=== PATIENT | female | born 1995 | race Caucasian/White ===

== ENCOUNTER 2021-06-20 13:40 | Inpatient (IN) | payer OTHER, SELFPAY ==
[2021-06-20] VITALS (32 sets, daily range): BP systolic 115–143; BP diastolic 61–90; PULSE 66–109; TEMP 36.7–37; O2SAT 80–100; BMI 26.1
[2021-06-20 13:38] LABS: ROM Internal Control Test YES-OK TO RESULT pt. (Internal QC)
[2021-06-20 13:39] LABS: ROM Patient Test POSITIVE (Negative)
[2021-06-20] MEDS: Lactated Ringers 1,000 ML 50 ML IV (13:54)
[2021-06-20 14:12] LABS: Absolute Lymphocyte Count 1.24 X10^3/uL (0.83-4.51); Absolute Neutrophil Count 7.5 X10^3/uL (2.0-7.7); Basophil# 0.06 X10^3/uL; Basophil% 0.6 % (0-1); Eosinophil# 0.13 X10^3/uL; Eosinophils% 1.4 % (0-5); Hematocrit 35.8 % (37-47); Hemoglobin 12.4 g/dL (12.0-15.0); Lymphocyte # 1.24 X10^3/ul (0.83-4.51); Lymphocyte % 13.1 % (19-41); Mean Corp Hgb Conc 34.6 g/dL (32-36); Mean Corpuscular Hgb 29.9 pg (27.0-32.0); Mean Corpuscular Volume 86.3 fL (81-99); Mean Platelet Vol. 10.9 fl (6.2-12.0); Monocyte# 0.53 X10^3/uL; Monocyte% 5.6 % (0-10); NRBC Flagged by Analyzer 0 % (0-5); Neutrophil # 7.46 X10^3/uL (2.7-7.7); Neutrophil % 78.7 % (47-70); Platelet Count 183 K/mm3 (150-450); RBC Distribution Width CV 13.8 % (11.6-14.6); RBC Distribution Width SD 42.9 fl (35.1-43.9); Red Blood Count 4.15 M/mm3 (4.2-5.4); White Blood Count 9.5 K/mm3 (4.4-11.0)
[2021-06-20 14:30] LABS: Bedside Glucose 70 mg/dL (74-106)
[2021-06-20 15:41] LABS: Bedside Glucose 82 mg/dL (74-106)
[2021-06-20] MEDS: Ondansetron 4 MG/2 ML Vial IV (16:14)
[2021-06-20] MEDS: Lactated Ringers 500 ML 999 ML IV (16:48)
--- NOTE | 2021-06-20 16:57 | PCM.HP.OB ---
HPI - General General Date of Admission: 06/20/21 HPI Narrative SHELLEY FITZPATRICK, is a 26 F at 38.4 weeks gestation who presents to triage with leaking of fluid. Reports water breaking around 1210 for large amount of clear fluid. Positive movement. Patient feeling contractions every couple of minutes. complicated by GDM A1, Anemia, and RH negative status. Maternal Data Information ROSEY Calculator Estimated Delivery Date Method Current WG Current Estimate 06/30/21 Manual 38w 4d PFSH PFSH Medical History Anxiety Depression Gestational diabetes Headache Meniscal injury Home Medications ferrous sulfate [iron] 325 mg PO DAILY 06/20/21 [History Last Taken Unknown] vit-iron fum-folic ac [ Fa] 1 tab PO DAILY 06/20/21 [History Last Taken Unknown] Allergy/AdvReac Type Severity Reaction Status Date / Time No Known Allergies Allergy Unverified 06/20/21 13:24 Social History Smoking Status: Never smoker alcohol intake: current alcohol intake frequency: holidays/special occasions only History Elective abortions Hx Para 0 Spontaneous abortions Hx # Term Pregnancies Ectopic pregnancies Hx # Pregnancies Multiple births # of living children NST FHR Rate Baby A Baseline: 135 Variability:: Moderate Accelerations:: 15 x 15 Decelerations:: None NST Reactive:: Yes FHR Category:: Category I Uterine Activity:: 2-4 minutes ROS Eyes Eyes: Denies blurry vision, change in vision or spots in vision ENT HEENT: Denies dizziness or headache(s) Cardiovascular Cardiovascular: Denies abdominal pain, chest pain or dyspnea Respiratory/Chest Respiratory/Chest: Denies cough, dyspnea, shortness of breath at rest or shortness of breath with exertion Gastrointestinal Gastrointestinal: Denies abdominal pain, diarrhea or vomiting Genitourinary Genitourinary: Denies change in urinary stream, difficulty urinating or dysuria Musculoskeletal Musculoskeletal: Reports none Integumentary Integumentary: Denies rash Neurologic Neurologic: Denies dizziness, headache(s), memory loss or weakness Psychiatric Psychiatric: Reports none Vital Signs Vital Signs Vital Signs: 06/20/21 13:41 06/20/21 14:01 06/20/21 14:02 Temperature 98.6 F Temperature Source Temporal Pulse Rate 86 86 90 Blood Pressure 130/90 H 134/86 H BP Systolic 130 134 BP Diastolic 90 86 Pulse Ox 98 06/20/21 14:03 06/20/21 15:31 06/20/21 16:34 Temperature 98.5 F 98.3 F Temperature Source Temporal Temporal Pulse Rate 75 73 Blood Pressure 130/88 H 130/84 H BP Systolic 130 130 BP Diastolic 88 84 Pulse Ox 80 Weight Weight: 156 lb 15.506 oz Body Mass Index (BMI) 26.1 Physical Exam Const alert, oriented x3 and no apparent distress General Appearance: cooperative Orientation / Consciousness: awake Exam Limitations: no limitations HEENT normocephalic Head and Scalp: normal to inspection Eyes General Eye: normal appearance of both eyes Neck full ROM and no lymphadenopathy Lymph Lymphatic: no lymphadenopathy noted Chest inspection of chest normal Resp normal respiratory effort, normal air movement and clear to auscultation bilaterally Effort and Inspection: able to speak in complete sentences and symmetric chest movement Cardio regular rate and regular rhythm GI normal to inspection, nondistended, normoactive bowel sounds Narrative: 80 Manual OB Exam: presentation cephalic, dilated 4.5, effaced and station -2 Amniotic Fluid: clear amniotic fluid Back/Spine normal ROM Extremity full ROM and no calf tenderness Skin no rashes or lesions noted General Skin Exam: no breakdown Neuro oriented x3 and CN's II-XII intact bilaterally Psych mental status grossly normal and thought process normal Labs Labs Labs: Blood Type O NEGATIVE Antibody Screen NEGATIVE Hct 35.8 % (37-47) L Hgb 12.4 g/dL (12.0-15.0) Rubella- immune HB- neg HC- neg RPR- NR HIV- NR GBS- negative Assessment & Plan (1) Spontaneous rupture of membranes: (2) Spontaneous onset of labor: (3) 38 weeks gestation of : (4) GDM (gestational diabetes mellitus), class A1: (5) Rh negative status during : QUALIFIERS: Trimester: unspecified trimester Qualified Code(s): O26.899 - Other specified related conditions, unspecified trimester; Z67.91 - Unspecified blood type, Rh negative (6) Anemia affecting : QUALIFIERS: Trimester: third trimester Qualified Code(s): O99.013 - Anemia complicating , third trimester PLAN: ROM plus- Positive CE 4.5/80/-2 Admit to labor and delivery Routine labs Start IV and run fluids per orders GDM protocol initiated Epidural when indicated Dr. Esqueda notified of induction and is collaborating physician
[2021-06-20] MEDS: fentaNYL-bupivacaine (epidural) 100 ML BAG EPIDURAL (17:45)
[2021-06-20 18:46] LABS: Bedside Glucose 87 mg/dL (74-106)
[2021-06-20 18:46] LABS: Bedside Glucose 68 mg/dL (74-106)
[2021-06-20 18:46] LABS: Bedside Glucose 106 mg/dL (74-106)
[2021-06-20] MEDS: Oxytocin 30 units/NS 500 ml 30 UNITS/500 ML IV.SOLN 167 UNITS IV (19:10)
--- NOTE | 2021-06-20 19:20 | EX.PCM.OBRPT ---
Assessment & Plan (1) Two vessel umbilical cord: (2) Rh negative status during : QUALIFIERS: Trimester: unspecified trimester Qualified Code(s): O26.899 - Other specified related conditions, unspecified trimester; Z67.91 - Unspecified blood type, Rh negative (3) GDM (gestational diabetes mellitus), class A1: (4) (spontaneous vaginal delivery): Maternal Data Information ROSEY Calculator Estimated Delivery Date Method Current WG Current Estimate 06/30/21 Manual 38w 4d Vaginal Delivery Maternal Presentation Maternal Presentation: Spontaneous Rupture of Membranes Maternal Presentation: at 38.4 weeks gestation that presented with spontaneous onset of labor with SROM for clear fluid. No augmentation needed. Operative Information Date of Procedure: 06/20/21 Pre-Operative Diagnosis: Term gestation, spontaneous rupture of membranes, spontaneous onset of labor Post-Operative Diagnosis: Same Surgery / Procedure Performed: Spontaneous Vaginal Delivery Type of Anesthesia: Epidural Estimated Blood Loss: 200 Time of Delivery: 19:06 Findings Description of Procedure: Provided bedside support to patient while pushing. With minimal maternal effort, head delivered followed by anterior shoulder and remainder of . CAN x 1 loose and delivered through. Vigorous male placed on maternal abdomen and attended to by nursing staff. Pitocin IV started for active management of the third stage of labor. 2 vessel cord clamped and cut by FOB after delay. Cord blood collected and sent to lab. placed immediately skin to skin with patient. Placenta delivered spontaneously and intact. After inspection it was noted that vagina and perineum intact. Vaginal sweep completed by me. Hemostasis obtained. EBL 200 cc. Fundus firm and 1 below U. Small vaginal cyst present that was previously seen in office. Will be removed at PP office visit. Patient and bonding well at this time. APGARS 9/10. Dr. Esqueda notified of delivery. Presentation: Vertex Time of Membrane Rupture: 1210 Amniotic Fluid Description: Clear Placental Delivery Description: Spontaneous Placenta Disposition: [facility] Cord Vessel Description: 2 Vessels Cord Entanglement: Around neck x 1, loose Nuchal Cord Compression: Without compression Infant A Gender: Male (1 minute): 9 (5 minute): 10 Delayed Cord Clamping: Yes Post Vaginal Delivery Medications Given After Delivery: IV Pitocin Episiotomy Description: None Laceration: None Complication Complications: None
[2021-06-20 20:10] LABS: Bedside Glucose 108 mg/dL (74-106)
[2021-06-21 00:47] VITALS: BP 115/80; PULSE 73; RESP 18; TEMP 36.8
--- NOTE | 2021-06-21 01:22 | NURSING ---
06/20/21 @ 6941 epidural cath removed. tip intact.
[2021-06-21 03:49] VITALS: BP 116/72; PULSE 73; RESP 16; TEMP 36.5
[2021-06-21 05:26] LABS: Bedside Glucose 68 mg/dL (74-106)
--- NOTE | 2021-06-21 08:24 | PCM.PN.OB ---
Subjective Subjective Doing well per patient and nursing staff. Ambulating and taking PO without difficulty. Voiding and passing flatus. Pain controlled. , services for assistance. Denies headache, visual changes, chest pain, shortness of breath, leg pain or increased bleeding. Lochia normal. Objective Data Objective Data Vital Signs: Vital Signs Temp Pulse Resp BP Pulse Ox 97.7 F L 73 16 116/72 98 06/21/21 03:49 06/21/21 03:49 06/21/21 03:49 06/21/21 03:49 06/20/21 18:42 Oxygen Delivery Method Room Air Weight: 156 lb 15.506 oz Body Mass Index (BMI) 26.1 Intake & Output: Intake and Output for Last 24 Hours 06/19/21 06/20/21 06/21/21 23:59 23:59 23:59 Intake Total 7.5 / 1916.5 Output Total 1200 / 1200 Balance 7.5 / 1916.5 -1200 / -1200 Lab / Micro Data Result Diagrams: 06/20/21 13:55 Labs: Laboratory Results - last 24 hr 06/20/21 13:25: Vag Amniotic Fld Detect POSITIVE H 06/20/21 13:55: WBC 9.5, RBC 4.15 L, Hgb 12.4, Hct 35.8 L, MCV 86.3, MCH 29.9, MCHC 34.6, RDW Std Deviation 42.9, RDW Coeff of Saloni 13.8, Plt Count 183, MPV 10.9, Immature Gran % (Auto) 0.600, Neut % (Auto) 78.7 H, Lymph % (Auto) 13.1 L, [place] % (Auto) 5.6, Eos % (Auto) 1.4, Baso % (Auto) 0.6, Absolute Neuts (auto) 7.5, Absolute Lymphs (auto) 1.24, Nucleated RBC % 0 06/20/21 13:55: Blood Type O NEGATIVE, Antibody Screen Not Reportable 06/20/21 13:55: Antibody Screen NEGATIVE 06/20/21 14:26: POC Glucose 70 L 06/20/21 15:32: POC Glucose 82 06/20/21 16:37: POC Glucose 68 L 06/20/21 17:34: POC Glucose 87 06/20/21 18:35: POC Glucose 106 06/20/21 20:07: POC Glucose 108 H 06/20/21 21:10: Screen NEGATIVE, Baby's Blood Type O POSITIVE, Baby's CORI NEGATIVE 06/21/21 05:16: POC Glucose 68 L Micro: Microbiology 06/20/21 Unknown Nasal Secretion SARS-CoV-2 Antigen (Rapid) - Final ROS Constitutional Constitutional: Reports systems reviewed and no addt'l complaints, except as documented; Denies headache(s) Eyes Eyes: Denies acute decrease in peripheral vision, blurry vision or change in vision ENT HEENT: Reports systems reviewed and no addt'l complaints, except as documented Cardiovascular Cardiovascular: Denies chest pain or dizziness Respiratory/Chest Respiratory/Chest: Denies cough, dyspnea, dyspnea on exertion, shortness of breath at rest or shortness of breath with exertion Gastrointestinal Gastrointestinal: Denies abdominal pain, diarrhea, nausea or vomiting Genitourinary Genitourinary: Denies abdominal discomfort Musculoskeletal Musculoskeletal: Denies limited range of motion Integumentary Integumentary: Reports systems reviewed and no addt'l complaints, except as documented Neurologic Neurologic: Reports systems reviewed and no addt'l complaints, except as documented Psychiatric Psychiatric: Reports systems reviewed and no addt'l complaints, except as documented Endocrine Endocrinology: Reports systems reviewed and no addt'l complaints, except as documented Hematologic/Lymphatic Hematologic/Lymphatic: Reports systems reviewed and no addt'l complaints, except as documented Allergic/Immunologic Allergic/Immunologic: Reports systems reviewed and no addt'l complaints, except as documented Physical Exam Const alert and oriented x3 General Appearance: cooperative Orientation / Consciousness: awake, oriented to person, oriented to place and oriented to time Exam Limitations: no limitations HEENT normocephalic Head and Scalp: normal to inspection, normocephalic and atraumatic Face and Sinus: normal facial exam Eyes General Eye: normal appearance of both eyes Neck full ROM Chest Chest: symmetrical chest wall rise Resp normal respiratory effort and normal air movement Auscultation: clear to auscultation bilaterally Cardio regular rate, regular rhythm, S1 normal heart sound, S2 normal heart sound, no murmurs, no rub, no gallops and no clicks GI normal to inspection, nondistended, normoactive bowel sounds and non-tender appearance of the vagina normal Bladder / Kidney Exam: no CVA tenderness Back/Spine normal ROM Extremity normal to inspection and full ROM Skin no rashes or lesions noted Neuro oriented x3, CN's II-XII intact bilaterally and moves all extremities Sensorium / Orientation: awake, alert and oriented to person Motor Exam: clonus absent Deep Tendon Reflexes: Rt Patellar (L4): 2+ and Lt Patellar (L4): 2+ Assessment & Plan (1) (spontaneous vaginal delivery): (2) GDM (gestational diabetes mellitus), class A1: PLAN: 1) Routine PP care 2) Vitals stable 3) Pain controlled 4) PPD#1, planning D/C tomorrow
[2021-06-21 10:00] VITALS: BP 122/82; PULSE 63; RESP 16; TEMP 36.3
[2021-06-21] MEDS: Acetaminophen 500 MG Tablet 1000 MG PO ×2 (10:55→19:42)
[2021-06-21] MEDS: Prenatal Vits Tablet 1 TABLET PO (10:56)
[2021-06-21] MEDS: Ferrous Sulfate 325 MG Tablet PO (10:56)
[2021-06-21 15:18] VITALS: BP 124/86; PULSE 78; RESP 16; TEMP 36.6; O2SAT 96
[2021-06-21 18:24] VITALS: BP 102/68; PULSE 69; RESP 16; TEMP 36.6
[2021-06-21 21:00] VITALS: BP 108/75; PULSE 68; RESP 16; TEMP 36.3; O2SAT 97
[2021-06-22 00:59] VITALS: BP 109/77; PULSE 73; RESP 16; TEMP 36.3; O2SAT 97
[2021-06-22] MEDS: Acetaminophen 500 MG Tablet 1000 MG PO ×2 (06:19→12:22)
[2021-06-22 10:40] VITALS: BP 125/87; PULSE 71; RESP 16; TEMP 36.6
--- NOTE | 2021-06-22 10:55 | PN.OBGYN_ITS ---
Subjective Subjective Doing well per patient and nursing staff. Ambulating and taking PO without difficulty. Voiding and passing flatus. Pain controlled. and pumping,baby in special care nursery for blood sugars. Denies headache, visual changes, chest pain, shortness of breath, leg pain or increased bleeding. Lochia normal. Objective Data Objective Data Vital Signs: Vital Signs Temp Pulse Resp BP Pulse Ox 97.9 F 71 16 125/87 H 97 06/22/21 10:40 06/22/21 10:40 06/22/21 10:40 06/22/21 10:40 06/22/21 00:59 Oxygen Delivery Method Room Air Weight: 156 lb 15.506 oz Body Mass Index (BMI) 26.1 Intake & Output: Intake and Output for Last 24 Hours 06/20/21 06/21/21 06/22/21 23:59 23:59 23:59 Intake Total 7.5 / 1916.5 Output Total 1200 / 1200 Balance 7.5 / 7.5 -1200 / -1200 Lab / Micro Data Result Diagrams: 06/20/21 13:55 Micro: Microbiology 06/20/21 Unknown Nasal Secretion SARS-CoV-2 Antigen (Rapid) - Final ROS Constitutional Constitutional: Reports systems reviewed and no addt'l complaints, except as documented; Denies headache(s) Eyes Eyes: Denies acute decrease in peripheral vision, blurry vision or change in vision ENT HEENT: Reports systems reviewed and no addt'l complaints, except as documented Cardiovascular Cardiovascular: Denies chest pain or dizziness Respiratory/Chest Respiratory/Chest: Denies cough, dyspnea, dyspnea on exertion, shortness of breath at rest or shortness of breath with exertion Gastrointestinal Gastrointestinal: Denies abdominal pain, diarrhea, nausea or vomiting Genitourinary Genitourinary: Denies abdominal discomfort Musculoskeletal Musculoskeletal: Denies limited range of motion Integumentary Integumentary: Reports systems reviewed and no addt'l complaints, except as documented Neurologic Neurologic: Reports systems reviewed and no addt'l complaints, except as documented Psychiatric Psychiatric: Reports systems reviewed and no addt'l complaints, except as documented Endocrine Endocrinology: Reports systems reviewed and no addt'l complaints, except as docu mented Hematologic/Lymphatic Hematologic/Lymphatic: Reports systems reviewed and no addt'l complaints, except as documented Allergic/Immunologic Allergic/Immunologic: Reports systems reviewed and no addt'l complaints, except as documented Physical Exam Const alert and oriented x3 General Appearance: cooperative Orientation / Consciousness: awake, oriented to person, oriented to place and oriented to time Exam Limitations: no limitations HEENT normocephalic Head and Scalp: normal to inspection, normocephalic and atraumatic Face and Sinus: normal facial exam Eyes General Eye: normal appearance of both eyes Neck full ROM Chest Chest: symmetrical chest wall rise Resp normal respiratory effort and normal air movement Auscultation: clear to auscultation bilaterally Cardio regular rate, regular rhythm, S1 normal heart sound, S2 normal heart sound, no murmurs, no rub, no gallops and no clicks GI normal to inspection, nondistended, normoactive bowel sounds and non-tender appearance of the vagina normal Bladder / Kidney Exam: no CVA tenderness Back/Spine normal ROM Extremity normal to inspection and full ROM Skin no rashes or lesions noted Neuro oriented x3, CN's II-XII intact bilaterally and moves all extremities Sensorium / Orientation: awake, alert and oriented to person Motor Exam: clonus absent Deep Tendon Reflexes: Rt Patellar (L4): 2+ and Lt Patellar (L4): 2+ Assessment & Plan (1) (spontaneous vaginal delivery): PLAN: 1) Routine PP care 2) Pain management, declines medication 3) Hgb stable, asymptomatic 4) Discharge to hotel status 5) Follow up in 2 weeks and 6 weeks PP
[2021-06-22] MEDS: Ferrous Sulfate 325 MG Tablet PO (10:56)
--- NOTE | 2021-06-22 10:58 | PCM.DC.SUM ---
Providers Date of Admission: 06/20/21 Primary Care Physician: Dr. Tia Lennon MD Reason For Visit: LABOR AND DELIVERY/VAGINAL DELIVERY Diagnosis Discharge Diagnosis (1) (spontaneous vaginal delivery): Status: Acute Code(s): O80 - Encounter for full-term uncomplicated delivery Medications at Discharge Home Medications vit-iron fum-folic ac 1 tab PO DAILY 06/20/21 acetaminophen 1,000 mg PO Q6H PRN PRN #0 tab 06/22/21 naproxen 500 mg PO Q8H PRN PRN #0 tab 06/22/21 Weight / BMI Weight Weight: 156 lb 15.506 oz Body Mass Index (BMI) 26.1 ABG / Lab / Microbiology Data Result Diagrams: 06/20/21 13:55 Microbiology: Microbiology 06/20/21 Unknown Nasal Secretion SARS-CoV-2 Antigen (Rapid) - Final Meaningful Use Info Meaningful Use Diagnoses (Choose all that apply): None applicable Discharge Plan Admission Admit Date/Time: 06/20/21 13:40 Primary Reason for Your Visit: vaginal delivery Attending Provider: Esha Cavanaugh Primary Care Provider: Tia Lennon Instructions Patient Instructions: After a Vaginal , Discharge Orders/Prescriptions Prescriptions: New acetaminophen 500 mg Tablet 1,000 mg PO Q6H PRN PRN (Reason: Pain 1-10 Or Fever) Qty: 0 RF: 0 naproxen 500 mg Tablet 500 mg PO Q8H PRN PRN (Reason: Pain Score 1-3) Qty: 0 RF: 0 Continued vit-iron fum-folic ac 60 mg iron-1 mg Tablet 1 tab PO DAILY RF: 0 Discontinued ferrous sulfate [iron] 325 mg (65 mg iron) Tablet 325 mg PO DAILY RF: 0 Referrals / Follow Up: Esha Cavanaugh CNM [Certified Nurse Scientific Software Developer] - (2 weeks and 6 weeks ) Tia Lennon MD [Primary Care Provider] - Disposition Disposition (needs filled in before D/C Order can be placed): Home, Self Care
[2021-06-22] MEDS: Prenatal Vits Tablet 1 TABLET PO (12:23)
--- NOTE | 2021-06-22 13:10 | CM.ED ---
SW Note SW spoke to patient and she gave verbal consent to speak to her in the presence of the FOB. The nb was in the SCN so SW did not note interaction between nb and pt/fob. However, Sherice RUANO voiced no concerns regarding patient and care of the nb. Mom: Meredith PNC: Chloe Delivered at 38 weeks. Control: Nonhormonal type of control which she plans to speak to her OB about at follow up visit. Baby: Emelia Kim : 06/20/21 Apgars : 9/10 Weight: 7# 13 ounces Scientific Photographer: Jama Breast feeding. Patient reports that breast feeding is going good. This is patient's first child. No other children Housing: Patient, FOB and nb will reside together in rented house. Transportation: Patient reports access to transportation and no transportation issues. Supplies: Patient report she has all the nb supplies including bassinet, crib, carseat, clothes and diapers. Support: Patient said that her support includes her mother and fob. Patient's family is local. Patient said that her friend is a nurse and a support. 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 Employment: Patient is employed at [employer] as a [employer]. She reports that she has celis off so she will return back to work in November. Patient said that her goal is to pass the exam and work at the hospital. Patient said that she enjoys the geriartic population. 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 He plans to take 2 weeks off work. He recently graduated from [employer] with a LABEL DRIER. No other children FOB reports history of depression with anxiety and it is managed effectively with coping skill and no medication. Maternal MH History: Patient reports that she has anxiety and depression and feels that the anxiety makes her more depressed. Patient reports no past medication use. Patient said that she would prefer to go to counseling for coping skills as opposed to medication. Patient said that she has gone to counseling in the past but did not like the therapist. No current therapist. SW discussed that medication can be beneficial and patient verbalized understanding. Patient reports no SI/HI and reports no psych hospitalization. SW talked extensively about Post Depression and symptoms of PPD and advised when to contact her MD. Patient verbalized understanding. SW also educated on the [facility] PHP/IOP program. Mary Carmen was educated on Shaken Baby Syndrome, PPD, Safe Sleeping. Patient reports no alcohol use while but does drink socially when not . Patient denied drug use. Patient denied smoking nicotine. SW provided handout which included phone numbers for support, on line anxiety and depression resources , HMG resources, [facility], 10 facts about depression and anxiety in and post , depression symptom checklist and counseling agencies. No concerns or issues voiced by patient or FOB. Plan: Home at discharge. Patient is currently on hotel status as nb is in [facility]. Essence RUIZ
== END 2021-06-22 14:10 | disposition home or self-care (01) | DRG 807 ==
LOC: WPOUT 13:41 → WP 13:41
PROVIDERS: Admitting Provider Advanced Practice Midwife; PCP Pediatrics; Visit Provider Advanced Practice Midwife
DX: O24.429 Gestational diabetes mellitus in childbirth, unspecified control (principal); Z37.0 Single live birth; D64.9 Anemia, unspecified; Q27.0 Congenital absence and hypoplasia of umbilical artery; O26.893 Other specified pregnancy related conditions, third trimester; O69.2XX0 Labor and delivery complicated by other cord entanglement, with compression, not applicable or unspecified; Z3A.38 38 weeks gestation of pregnancy; Z67.91 Unspecified blood type, Rh negative; O99.013 Anemia complicating pregnancy, third trimester
CPT/HCPCS: 59025; 59050; 82962; 84112; 85025; 85461; 86850; 86900; 86901; 87426; 90384; 99218; J7120; G0378; J2405; J2790

== ENCOUNTER 2021-08-05 21:53 | Emergency (ER) | payer OTHER, SELFPAY ==
[2021-08-05 21:55] VITALS: BP 126/78; PULSE 82; RESP 16; TEMP 36.2; O2SAT 98; BMI 22.1
--- NOTE | 2021-08-05 23:00 | EKG12_ITS ---
Test Reason : CP Blood Pressure : / mmHG Vent. Rate : 083 BPM Atrial Rate : 083 BPM P-R Int : 142 ms QRS Dur : 070 ms QT Int : 392 ms P-R-T Axes : 069 069 028 degrees QTc Int : 460 ms Sinus rhythm with frequent Premature ventricular complexes Otherwise normal ECG Confirmed by ANDRA PRADO, LUIS ([id number]), photo editor QUENTIN LYLE ([id number]) on 08/07/2021 8:48:43 AM Referred By: BB Confirmed By:LUIS SILVERMAN MD
--- NOTE | 2021-08-05 23:01 | ED.VIS.CHEST ---
HPI History of Present Illness Chief Complaint: Chest Pain Informant: patient Onset/Context/Timing Onset: Today (Last 3 to 4 hours) Activity at onset: gradual and onset Timing: Continuous Quality: Positive for Dull Location: Left Parasternal Current Severity: Mild Maximum Severity: Moderate Worsened By: Breathing Relieved By: - (Breathing easier but letting off now for unknown reason) Associated Symptoms: Negative for Nausea, Vomiting, Diaphoresis, Dyspnea, Cough, Fever, Lightheadedness or Palpitations Narrative Narrative: Patient is about 6 weeks after an uncomplicated spontaneous vaginal delivery, her was complicated by gestational diabetes but the delivery and period have been uncomplicated until now. She states this evening she went for a run and she had no problems or dyspnea or chest discomfort, but when she got done with it she started having pleuritic left-sided chest pain and tingling in her left little finger. No history of DVT or PE, no bleeding or clotting disorders in her or the family that they know of, no recent leg pain or swelling, no recent travel out of the area, no surgeries. She did have a partially collapsed lung once that was spontaneous. [facility] Medical History Anxiety Depression Gestational diabetes Headache Meniscal injury Medical History no medical history Home Medications vit with calcium-iron fum-folic acid 60 mg iron-1 mg tablet 1 tab PO DAILY 06/20/21 [History Last Taken Unknown] Allergy/AdvReac Type Severity Reaction Status Date / Time No Known Allergies Allergy Verified 08/05/21 21:55 Social History Smoking Status: Never smoker alcohol intake: current alcohol intake frequency: holidays/special occasions only ROS ROS ED Constitutional Constitutional ED: Denies chills or fever(s) Eyes Eyes: Denies change in vision or diplopia ENT ENT ED: Denies rhinorrhea or sore throat Cardiovascular Cardiovascular: Reports chest pain; Denies palpitations Respiratory/Chest Respiratory/Chest: Denies cough or dyspnea Gastrointestinal Gastrointestinal: Denies abdominal pain, diarrhea, nausea or vomiting Genitourinary Genitourinary ED: Denies dysuria or hematuria Musculoskeletal Musculoskeletal: Denies back pain or neck pain Integumentary Denies abscess or rash Neurologic Neurologic: Reports paresthesias; Denies headache(s) or weakness Psychiatric Psychiatric: Denies anxiety or suicidal thoughts EXAM Physical Exam Const Vital Signs: 08/05/21 21:55 08/05/21 22:49 08/05/21 23:38 Temperature 97.1 F L Temperature Source Temporal Pulse Rate 82 78 Respiratory Rate 16 16 Respiratory Effort Normal Non-Labored Blood Pressure 126/78 H Blood Pressure Mean 94 Pulse Ox 98 100 Oxygen Delivery Method Room Air Room Air 08/06/21 00:00 Temperature Temperature Source Pulse Rate 79 Respiratory Rate 15 Respiratory Effort Blood Pressure 114/73 Blood Pressure Mean 86 Pulse Ox 97 Oxygen Delivery Method Room Air Positive well nourished and well developed General Appearance ED: well developed and NAD HEENT Reports moist mucous membranes normocephalic and atraumatic Eyes PERRL and EOMs intact bilaterally Neck full ROM and supple Chest Wall inspection of chest normal and palpation of chest normal Chest Narrative: NT Resp normal respiratory effort and clear to auscultation bilaterally Cardio regular rate, regular rhythm and no murmurs Rate: Negative for tachycardic GI non-tender and non-distended Auscultation: normoactive bowel sounds Palpation: soft Back/Spine no CVA tenderness General Back: other FROM Extremity normal to inspection, no calf tenderness and no pedal edema Extremity Narrative: No palpable cords. General Extremety ED: Negative for edema, pulses abnormal or tenderness General Extremity: Negative for edema or pulses abnormal Neuro oriented x3, CN's II-XII intact bilaterally and no sensory deficits noted Sensorium / Orientation: awake and alert Motor Exam: strength 5/5 throughout Skin no rashes or lesions noted and no wounds MDM MDM MDM Narrative Medical decision making narrative: Initial EKG and two-view chest x-ray were obtained, on my interpretation the 2 view chest x-ray shows no pneumothorax or other acute disease, so I went forward in obtaining further testing including blood work. Her EKG shows ectopy that she is asymptomatic with and is otherwise normal. D-dimer negative/normal, the rest of the blood work is unremarkable. On reexamination she really does not have the discomfort anymore. Differential here includes pleurisy, esophageal/reflux etiologies, musculoskeletal etiologies due to exercising/running. Reassured, likely nothing dangerous here, she asked if she could run again based on this, and I think it would be reasonable to try. She is breast-feeding, we discussed using Tylenol as needed and avoiding ibuprofen for now. We discussed reasons to return she is comfortable with that plan. Lab Data Attestation: I reviewed the patient's lab results. Labs: Laboratory Results - last 24 hr 08/05/21 08/05/21 08/05/21 23:35 23:35 23:35 WBC 7.0 RBC 4.57 Hgb 13.0 Hct 39.1 MCV 85.6 MCH 28.4 MCHC 33.2 RDW Std Deviation 37.7 RDW Coeff of [place] 12.2 Plt Count 226 MPV 9.4 Immature Gran % (Auto) 0.300 Neut % (Auto) 69.0 Lymph % (Auto) 21.2 [place] % (Auto) 6.4 Eos % (Auto) 2.1 Baso % (Auto) 1.0 Absolute Neuts (auto) 4.8 Absolute Lymphs (auto) 1.48 Nucleated RBC % 0 D-Dimer Quant (PE/DVT) < 0.27 L Sodium 141 Potassium 3.5 Chloride 106 Carbon Dioxide 28.0 Anion Gap 7 BUN 17 Creatinine 0.92 Estim Creat Clear Calc 83.38 Est GFR (MDRD) Af Amer 95 Est GFR (MDRD) Non-Af 78 BUN/Creatinine Ratio 18.5 Glucose 111 H Calcium 9.0 Troponin I High Sens 18 Radiography Chest X-Ray - ED: 2 View, Read by ED Physician, No Acute Disease and No Infiltrates Diagnostic Testing: Clinical Impression(s) from Imaging Studies Chest X-Ray 08/05/21 23:15 IMPRESSION: Normal chest x-ray. Electronically Signed: Trisha Henson MD at 23:40 EDT , Rhythm Strip Rhythm Strip: Sinus Rhythm Rate: 80 Ectopy: PVC(s) EKG Initial EKG: Attestation: I personally reviewed and interpreted this EKG as follows: Interpretation: Sinus Rhythm and No Acute Injury Pattern Comments: PVCs, otherwise normal EKG Discharge Plan Triage Chief Complaint: Chest Pain Other Complaint: Numb/Ting Shortness of Breath ED Provider: Alfredito Ventura Dx/Rx/DC Orders Clinical Impression: Chest pain, pleuritic Instructions: ED Chest Pain, Uncertain Cause, ED Pleurisy Prescriptions: No Action vit-iron fum-folic ac 60 mg iron-1 mg Tablet 1 tab PO DAILY Primary Care Provider: Tia Lennon Referrals: Tia Lennon MD [Primary Care Provider] - Doctor,Your [STAFF PHYSICIAN] - 3-5 Days if not improving Activity Restrictions/Additional Instructions: Tylenol as needed for pain, try to avoid ibuprofen since you are breast-feeding. Disposition Disposition: Home, Self Care
--- NOTE | 2021-08-05 23:15 | RAD_ITS ---
STUDY: X-RAY CHEST REASON FOR EXAM: Female, 26 years old. left sided chest pain TECHNIQUE: PA and lateral. COMPARISON: None. FINDINGS: LUNGS: No consolidation. No pneumothorax. MEDIASTINUM: Unremarkable. CARDIAC SILHOUETTE: Not enlarged. BONES AND SOFT TISSUES: No acute abnormalities. RAD/Chest PA and Lateral IMPRESSION: Normal chest x-ray. Electronically Signed: Trisha Henson MD at 23:40 EDT ,
[2021-08-05 23:38] VITALS: PULSE 78; RESP 16; O2SAT 100
[2021-08-05 23:47] LABS: Absolute Lymphocyte Count 1.48 X10^3/uL (0.83-4.51); Absolute Neutrophil Count 4.8 X10^3/uL (2.0-7.7); Basophil# 0.07 X10^3/uL; Eosinophil# 0.15 X10^3/uL; Eosinophils% 2.1 % (0-5); Hematocrit 39.1 % (37-47); Lymphocyte # 1.48 X10^3/ul (0.83-4.51); Lymphocyte % 21.2 % (19-41); Mean Corp Hgb Conc 33.2 g/dL (32-36); Mean Corpuscular Hgb 28.4 pg (27.0-32.0); Mean Corpuscular Volume 85.6 fL (81-99); Mean Platelet Vol. 9.4 fl (6.2-12.0); Monocyte# 0.45 X10^3/uL; Monocyte% 6.4 % (0-10); NRBC Flagged by Analyzer 0 % (0-5); Neutrophil # 4.81 X10^3/uL (2.7-7.7); Platelet Count 226 K/mm3 (150-450); RBC Distribution Width CV 12.2 % (11.6-14.6); RBC Distribution Width SD 37.7 fl (35.1-43.9); Red Blood Count 4.57 M/mm3 (4.2-5.4)
[2021-08-05 23:58] LABS: D-Dimer Quantitative (DVT/PE) < 0.27 FEU/ug/m (0.27-0.49)
[2021-08-06] VITALS: BP 114/73; PULSE 79; RESP 15; O2SAT 97
[2021-08-06 00:04] LABS: Anion Gap 7 (5-15); BUN 17 mg/dL (7-18); BUN/Creat Ratio 18.5 RATIO (10-20); Chloride 106 mmol/L (98-107); Creatinine, Serum 0.92 mg/dL (0.55-1.02); EST Glomerular Filtration Rate 78 mL/min (>60); Est Glom Filt Rate - Afr Amer 95 mL/min (>60); Estimated Creatinine Clearance 83.38 ml/min; Glucose 111 mg/dL (74-106); Potassium 3.5 mmol/L (3.5-5.1); Sodium Level 141 mmol/L (136-145); Troponin-I HS 18 pg/mL (3.0-54.0)
[2021-08-06 00:47] VITALS: BP 117/78; PULSE 74; RESP 20; O2SAT 95
== END 2021-08-06 00:48 | disposition home or self-care (01) ==
PROVIDERS: Emergency Provider Emergency Medicine; PCP Pediatrics; Visit Provider Emergency Medicine
DX: O9A.23 Injury, poisoning and certain other consequences of external causes complicating the puerperium (principal); T88.8XXA Other specified complications of surgical and medical care, not elsewhere classified, initial encounter; R07.81 Pleurodynia; R06.02 Shortness of breath; Z86.32 Personal history of gestational diabetes
CPT/HCPCS: 71046; 80048; 84484; 85025; 85379; 93005; 99285; A4216